=== PATIENT | male | born 1975 | race Caucasian/White ===

== ENCOUNTER 2020-01-09 22:48 | Inpatient (IN) | payer BC, OTHER ==
[~2020-01-09] VITALS: Ht 182.9 cm; Wt 82.0 kg
[~2020-01-09 22:48] MED LIST: CELE1CAP4 OR; PROZ20CA OR; TRAM50TA2 OR; TRAZ100T OR
[2020-01-09 23:46] LABS: HEMATOCRIT 46.3 % (42.0-52.0); HEMOGLOBIN 15.6 g/dl (13.5-17.5); MEAN CORPUSCULAR HGB CONC 33.7 g/dl (32.0-36.5); PLATELET COUNT, AUTOMATED 304 10^3/uL (150-450); RED BLOOD COUNT 5.03 10^6/uL (4.30-6.10); WHITE BLOOD COUNT 8.9 10^3/uL (4.0-10.0)
[2020-01-10 00:12] LABS: AMPHETAMINES LEVEL URINE NEGATIVE (NEGATIVE); BARBITURATES URINE NEGATIVE (NEGATIVE); BENZODIAZEPINES URINE NEGATIVE (NEGATIVE); CANNABINOIDS URINE NEGATIVE (NEGATIVE); COCAINE METABOLITE URINE NEGATIVE (NEGATIVE); METHADONE URINE NEGATIVE (NEGATIVE); OPIATES URINE NEGATIVE (NEGATIVE); PHENCYCLIDINE URINE NEGATIVE (NEGATIVE)
[2020-01-10 00:27] LABS: ACETAMINOPHEN LEVEL < 2.0 UG/ML (10.0-30.0); ALBUMIN 4.7 GM/DL (3.2-5.2); ALT/SGPT 29 U/L (12-78); BILIRUBIN,DIRECT 0.4 MG/DL (0.0-0.2); BILIRUBIN,TOTAL 1.9 MG/DL (0.2-1.0); BLOOD UREA NITROGEN 9 MG/DL (7-18); CALCIUM LEVEL 9.7 MG/DL (8.5-10.1); CARBON DIOXIDE LEVEL 25 MEQ/L (21-32); CHLORIDE LEVEL 109 MEQ/L (98-107); CREATININE FOR GFR 0.98 MG/DL (0.70-1.30); ETHYL ALCOHOL (ETHANOL) < 0.003 % (0.000-0.010); GLOMERULAR FILTRATION RATE > 60.0 (>60); GLUCOSE, FASTING 97 MG/DL (70-100); SALICYLATE LEVEL < 1.7 MG/DL (5.0-30.0); SODIUM LEVEL 140 MEQ/L (136-145); TOTAL PROTEIN 7.7 GM/DL (6.4-8.2)
[2020-01-10] MEDS ORDERED: MOM 30ML SUSPENSION UDC PO PRN (01:00)
[2020-01-10] MEDS ORDERED: MAALOX 30 ML SUSP *UDC PO PRN (01:00)
[2020-01-10] MEDS ORDERED: traZODone 50 MG TAB PO PRN (01:00)
[2020-01-10 02:47] VITALS: BP 142/90
[2020-01-10] MEDS: NICOTINE 21MG/24HR 1 EA TRANSDERMAL TD SCH (08:39)
--- NOTE | 2020-01-10 09:57 | MHHPEPDOC ---
General Date Of Admission: Jan 09, 2020 Legal Status: 9.39 Chief Complaint "I was having thoughts of suicide." History of Present Illness HISTORY OF THE PRESENT ILLNESS: Patient is a 44 -year-old , male, with a history of admission to [facility] in 2011 s/p OD while intoxicated who was brought to ED on a 9.41 after pt's niece called the police after pt told her he was having thoughts of killing himself with no plan. Pt endorsed depressed mood, anxiety, hopelessness, helplessness, poor concentration, anhedonia, and insomnia in the ED due to current psychosocial stressors of a current divorce, his son in fpc, relationship problems with his ex-fiance, and fear of being laid off from his job and then homelessness due to inability to pay for his home. Psychiatric Review of Systems Depression (2 or more weeks): depressed mood, difficulty concentrating, suicidal thoughts Magalis (4 or more days of): denies Psychosis: denies PTSD: denies Anxiety: situational anxiety, stressor related anxiety Past Psychiatric History Previous Psychiatric Diagnosis: depression, anxiety Previous Psychiatric Admissions: [facility] 2011 s/p OD while intoxication Suicide Attempts: 2012 s/p OD while intoxication Psychiatric Follow-up: denies Psychiatric medications: denies Past Medical History Medical Problems healthy adult Head Injury: No Seizures: No Hospitalizations: No Surgeries: No Family Medical/Psychiatric HX Medical Problems noncontributory Psychiatric Disorders: No Addiction: No Suicide Attemps/Completions: No Addiction History nicotine, alcohol (3 beers yesterday, drinks once a month on average, heavy alcohol use in the past), other (utox neg) Social History Childhood: born and raised in [facility], 2 parent home, 1 or 10 siblings, average childhood. No long speaks with his family members states "We only fight when we do talk." Abuse/Trauma:denies. Current Living Situation: lives alone in [place] Education: 10th grade Employment: Tech in [employer] Social Support: friends at work, niece Legal: denies Marital: legally in process of getting a divorce from his second , have adult children (1 son currently in fpc) Mental Status Examination General Appearance: well groomed, appears stated age, hospital scubs/clothing Build: average Demeanor: average Eye Contact: average Activity: average, anxious Behavior: cooperative Speech: clear, normal volume, reg/rate,rhythm,volume Mood: euthymic, anxious Mood "ok" Affect: full, appropriate, anxious Thought Process: logical/linear, intact Thought Content (Delusions): none reported, denies SI, HI, AVH Thought Content (Other): none reported Thought Content (Aggressive): none reported Perception (Hallucinations): none reported Perception (Other): none reported Cognition (Impairment of): none reported Cognition(Intelligence Est.): average Oriented: Awake, Alert, Oriented times three Insight: fair Judgment: Fair Psychosis: Denies Diagnoses Adjustment d/o with anxiety and depression alcohol use d/o A-FIB/CHADSVASC A-FIB History Current/History of A-Fib/PAF?: No Assessment Pt seen and states he was having thoughts of harming himself as he's currently going thru a divorce, is unsure what's going on with his ex-fiance, and is worried about being laid off due to to the COV19. States he drank 3 beers yesterday to help him relax but it didn't. States he feels he would benefit from starting antidepressant medication and recommended starting zoloft to aid his mood and thoughts and is agreeable, risks/benefits discussed. Encouraged to go to groups as part of his treatment and states he's been to one already. Currently denies SI/HI, hallucinations, delusions. Feels safe here. Initial Treatment Plan 1. Patient was admitted on a 9.39 status. 2. Complete history was obtained. 3. With patients permission, family will be contacted and database will be expanded. 4. Patients medication regimen will be reviewed and changed accordingly. 5. Patient will be provided with protected environment. 6. Patient will be treated with individual, group, and milieu therapies. 7. Patient will receive supportive psych-education. 8. Discharge planning will commence immediately. 9. Outpatient follow-up treatment will be strongly recommended. 10. The initial treatment plan will focus initially on: * Depression. * Risk for suicide. 11. zoloft 25mg daily ESTIMATED LENGTH OF STAY: 3-5 DAYS. TIME SPENT COUNSELING AND COORDINATING INITIAL CARE: 60 minutes. Vital Signs Vital Signs Date Time Temp Pulse Resp B/P (MAP) Pulse Ox O2 Delivery O2 Flow Rate FiO2 01/10/20 02:47 97.4 74 14 142/90 (107) 98 Room Air Laboratory Data 24H Labs Laboratory Tests 2 01/09/20 23:15: Nucleated Red Blood Cells % (auto) 0.0, Anion Gap 6L, Glomerular Filtration Rate > 60.0, Calcium Level 9.7, Total Bilirubin 1.9H, Direct Bilirubin 0.4H, Aspartate Amino Transf (AST/SGOT) 16, Alanine Aminotransferase (ALT/SGPT) 29, Alkaline Phosphatase 53, Total Protein 7.7, Albumin 4.7, Albumin/Globulin Ratio 1.57, Thyroid Stimulating Hormone (TSH) 1.470, Salicylates Level < 1.7L, Urine Opiates Screen NEGATIVE, Urine Methadone Screen NEGATIVE, Acetaminophen Level < 2.0L, Urine Barbiturates Screen NEGATIVE, Urine Phencyclidine Screen NEGATIVE, Urine Amphetamines Screen NEGATIVE, Urine Benzodiazepines Screen NEGATIVE, Urine Cocaine Metabolite Screen NEGATIVE, Urine Cannabinoids Screen NEGATIVE, Ethyl Alcohol Level < 0.003 CBC/BMP Laboratory Tests 01/09/20 23:15 Medications No Active Prescriptions or Reported Meds Allergies Coded Allergies: No Known Allergies (Verified , 06/19/12) CAROLE WAN DO Jan 10, 2020 9:57 am
[2020-01-10] MEDS ORDERED: SERTRALINE HCL 25 MG TABLET PO ONE (10:00)
--- NOTE | 2020-01-10 11:14 | HPEPDOC ---
General Date of Admission Jan 10, 2020 at 00:49 Date of Service: Jan 10, 2020 Chief Complaint The patient is a 44-year-old male admitted with a reason for visit of Unspecified Depression. Source: Patient Exam Limitations: No limitations Associated Symptoms: Denies Symptoms History of Present Illness Patient is a 44-year-old male who was admitted to the behavioral health unit due to depression with suicidal thoughts. Patient reported that has had a rough 6 months and yesterday his frustration got out of control; he reported to [facility] ED with suicidal ideation. Patient denied a history of depression or suicidal thoughts, however, he has been homeless and living in his truck for some time now. Patient currently denies SI/HI. He denies any new or worsening medical issues. Home Medications No Active Prescriptions or Reported Meds Allergies Coded Allergies: No Known Allergies (Verified , 06/19/12) Past Medical History Medical History Unremarkable Surgical History None Family History Significant Family History: Cancer (mother ()liver cancer; father ()lung cancer), Diabetes (mother and father) Social History * Smoker: current smoker, cigarettes (2 packs per day for 20 years) Alcohol: occationally (admits to previous alcoholism) Drugs: marijuana (occasionally) A-FIB/CHADSVASC A-FIB History Current/History of A-Fib/PAF?: No Current PO Anticoag Therapy: No Review of Systems Constitutional: Denies: Chills, Fever, Night Sweats Eyes: Denies: Pain ENT: Reports: Ear Pain; Denies: Head Aches Skin: Denies: Rash Pulmonary: Denies: Dyspnea, Cough Cardiovascular: Denies: Chest Pain, Palpitations, Orthopnea, Paroxysmal Noc. Dyspnea, Edema, Lt Headedness Gastrointestinal: Denies: Nausea, Vomiting, Abdominal Pain, Diarrhea, Constipation Genitourinary: Denies: Dysuria, Retention Hematologic: Denies: Bruising Musculoskeletal: Denies: Neck Pain, Back Pain, Joint Pain, Muscle Pain, Spasms Neurological: Denies: Weakness, Numbness Psych: Reports: Depression, Thoughts of Self Harm; Denies: Mood Normal, Memory Issues, Thoughts of Harming Other Physical Examination General Exam: Positive: Alert, No Acute Distress Eye Exam: Positive: PERRLA, Conjunctiva & lids normal, EOMI; Negative: Sclera icteric ENT Exam: Positive: Atraumatic, Mucous membr. moist/pink, Pharynx Normal Neck Exam: Positive: Supple; Negative: thyromegaly Chest Exam: Positive: Clear to auscultation, Normal air movement Heart Exam: Positive: Rate Normal, Regular Rhythm, Normal S1, Normal S2; Negative: Murmurs, Rubs Telemetry: Positive: No significant arrhythmia Abdomen Exam: Positive: Normal bowel sounds, Soft; Negative: Tenderness Extremity Exam: Positive: Normal pulses; Negative: Clubbing, Cyanosis, Edema Skin Exam: Positive: Nl turgor and temperature Neuro Exam: Positive: Normal Gait, Normal Speech, Cranial Nerves 3-12 NL Psych Exam: Positive: Mood NL Vital Signs Vital Signs Date Time Temp Pulse Resp B/P (MAP) Pulse Ox O2 Delivery O2 Flow Rate FiO2 01/10/20 02:47 97.4 74 14 142/90 (107) 98 Room Air Laboratory Data Labs 24H Laboratory Tests 2 01/09/20 23:15: Nucleated Red Blood Cells % (auto) 0.0, Anion Gap 6L, Glomerular Filtration Rate > 60.0, Calcium Level 9.7, Total Bilirubin 1.9H, Direct Bilirubin 0.4H, Aspartate Amino Transf (AST/SGOT) 16, Alanine Aminotransferase (ALT/SGPT) 29, Alkaline Phosphatase 53, Total Protein 7.7, Albumin 4.7, Albumin/Globulin Ratio 1.57, Thyroid Stimulating Hormone (TSH) 1.470, Salicylates Level < 1.7L, Urine Opiates Screen NEGATIVE, Urine Methadone Screen NEGATIVE, Acetaminophen Level < 2.0L, Urine Barbiturates Screen NEGATIVE, Urine Phencyclidine Screen NEGATIVE, Urine Amphetamines Screen NEGATIVE, Urine Benzodiazepines Screen NEGATIVE, Urine Cocaine Metabolite Screen NEGATIVE, Urine Cannabinoids Screen NEGATIVE, Ethyl Alcohol Level < 0.003 CBC/BMP Laboratory Tests 01/09/20 23:15 Assessment/Plan Patient is a 44-year-old male who was admitted to the behavioral health unit due to depression with suicidal thoughts. Patient reported that has had a rough 6 months and yesterday his frustration got out of control so he reported to [facility] ED with suicidal ideation. Patient denied a history of depression or suicidal thoughts, however, he has been homeless and living in his truck for some time now. Patient currently denies SI/HI. He denies any new or worsening medical issues. Depression with suicidal thoughts. Management per psychiatry Medicine will sign off at this time. Please feel free to re-consult as needed. Plan / VTE VTE Prophylaxis Ordered?: No CINDY BEACH PA-C Jan 10, 2020 11:14
[2020-01-10] MEDS: ACETAMINOPHEN TAB 650MG DOSE (2X325MG) PO PRN (14:52)
[2020-01-10 16:27] VITALS: BP 134/71
[2020-01-11 06:17] VITALS: BP 133/77
[2020-01-11] MEDS: NICOTINE 21MG/24HR 1 EA TRANSDERMAL TD SCH (08:40)
[2020-01-11] MEDS ORDERED: SERTRALINE HCL 25 MG TABLET PO SCH (09:00)
[2020-01-11] MEDS: ACETAMINOPHEN TAB 650MG DOSE (2X325MG) PO PRN (11:46)
--- NOTE | 2020-01-11 13:01 | MHDSPDOC ---
[facility] Discharge Summary Discharge Summary DATE OF ADMISSION: Jan 10, 2020 at 00:49 DATE OF DISCHARGE: 01/11/20 Nathanael Mishra Discharge Nathanael Mishra Select Gender MRN: N/A Date of : MM/DD/YYYY Date of Service: 01/11/2020 Diagnoses Adjustment disorder with disruption of mood and conduct. Alcohol use disorder, moderate. History of Present Illness 44-year-old man with no major psychiatric history presents with passive ideation after getting into a conflict with where he was kicked out of home. Consultants Involved Hospitalist/PCP screening Treatment and Progress On The Unit The patient was admitted to the inpatient unit and subsequently started on Zoloft 25 mg with positive effects. He was placed on CIWA protocol with no signs of major alcohol withdrawal. He was observed and after 48 hours, he did not meet criteria for further involuntary treatment. He attended groups when available and was friendly and amenable and in behavioral control the entire time. Discharge Assessment 44-year-old man with a lack of psychiatric history presents in a state of adjustment. He is treated primarily with low-dose antidepressants and supportive treatment that returned him to a future orientated state. The patient at the time of discharge did not meet criteria for involuntary admission/extension due to having a normal mental status exam, fair insight into the situation, They are engaged in the discharge process, as well as being friendly and amenable in behavioral control and havent been engaging in any observed concerning behavior or ideation recently. They decline voluntary extension/admission at this time and must be discharged in good yudith, as Im unable to make a case for holding the patient against their will. They may have historical risk factors of admissions and other interactions with psychiatry however, those are not modifiable from a clinical perspective. The patient will need to be discharged in good yudith. Mental Status Examination General: Well dressed with good hygiene Speech: Spontaneous and fluid Thought processes: Linear and logical MSK: Smooth and coordinated gait, no signs of tremors or involuntary orofacial movements Thought content: Future orientated Abstract reasoning, and computation: Intact Description of associations: Intact Description of abnormal or psychotic thoughts: Denies any suicidal or homicidal ideation. Denies any auditory or visual hallucinations. Does not appear to be responding to internal stimuli. Does not appear to be endorsing any bizarre or paranoid ideation. Judgment: fair Insight: fair Orientation: Alert and orientated 3 Cognition: Grossly normal Recent and remote memory: Intact Attention span and concentration: Intact Fund of knowledge: Adequate Mood: "okay" Affect: Euthymic with a full range Follow Up The social work team worked during the predischarge meeting in order to evaluate for further issues of lethality address them fully before discharge. They worked on safety planning with the patient's family members in order to ensure that the patient will have a safe and effective discharge. Time Spent The amount of time spent in the coordination of care for this patient was approximately 45 minutes. Vital Signs/I&Os Vital Signs Date Time Temp Pulse Resp B/P (MAP) Pulse Ox O2 Delivery O2 Flow Rate FiO2 01/11/20 12:49 99.1 01/11/20 06:17 63 18 133/77 (95) 01/10/20 02:47 98 Room Air Medications Scheduled Nicotine (Nicotine Patch) 21 Mg Patch.td24, 1 PATCH TD DAILY for tobacco for 30 Days, #30 Sertraline HCl (Sertraline HCl) 25 Mg Tablet, 25 MG PO DAILY for mood for 7 Days, #7 Allergies Coded Allergies: No Known Allergies (Verified , 06/19/12) ASHU ADAM DO Jan 11, 2020 13:01
[2020-01-11] MEDS ORDERED: SERT25TA21 PO (13:51)
[2020-01-11] MEDS ORDERED: NICO21PAT TD (13:51)
== END 2020-01-11 15:30 | disposition home or self-care (01) | DRG 755 ==
LOC: M ED 22:48 → M ED INP 01-10 00:49 → M PSY 01-10 01:36
PROVIDERS: ADMIT Psychiatry & Neurology Psychiatry; ATTEND Psychiatry & Neurology Psychiatry
DX: F43.25 Adjustment disorder with mixed disturbance of emotions and conduct (principal); F32.9 Major depressive disorder, single episode, unspecified; Z63.5 Disruption of family by separation and divorce; F41.9 Anxiety disorder, unspecified; F17.200 Nicotine dependence, unspecified, uncomplicated; F10.10 Alcohol abuse, uncomplicated; Z63.8 Other specified problems related to primary support group; Z56.2 Threat of job loss; F43.23 Adjustment disorder with mixed anxiety and depressed mood

== ENCOUNTER 2020-01-24 21:59 | Emergency (ER) | payer OTHER ==
[~2020-01-24] VITALS: Ht 182.9 cm; Wt 81.8 kg
[~2020-01-24 21:59] MED LIST changes: +NICO21PAT TD; +SERT25TA21 PO
[2020-01-24 22:59] LABS: HEMATOCRIT 48.9 % (42.0-52.0); HEMOGLOBIN 16.6 g/dl (13.5-17.5); MEAN CORPUSCULAR HEMOGLOBIN 31.5 pg (27.0-33.0); MEAN CORPUSCULAR HGB CONC 33.9 g/dl (32.0-36.5); MEAN CORPUSCULAR VOLUME 92.8 fl (80.0-96.0); PLATELET COUNT, AUTOMATED 315 10^3/uL (150-450); RED BLOOD COUNT 5.27 10^6/uL (4.30-6.10); WHITE BLOOD COUNT 13.9 10^3/uL (4.0-10.0)
[2020-01-24 23:16] LABS: AMPHETAMINES LEVEL URINE NEGATIVE (NEGATIVE); BARBITURATES URINE NEGATIVE (NEGATIVE); BENZODIAZEPINES URINE NEGATIVE (NEGATIVE); CANNABINOIDS URINE NEGATIVE (NEGATIVE); COCAINE METABOLITE URINE NEGATIVE (NEGATIVE); METHADONE URINE NEGATIVE (NEGATIVE); OPIATES URINE NEGATIVE (NEGATIVE); PHENCYCLIDINE URINE NEGATIVE (NEGATIVE)
[2020-01-24 23:40] LABS: ACETAMINOPHEN LEVEL < 2.0 UG/ML (10.0-30.0); ALBUMIN 4.2 GM/DL (3.2-5.2); ALT/SGPT 35 U/L (12-78); BILIRUBIN,DIRECT 0.1 MG/DL (0.0-0.2); BILIRUBIN,TOTAL 0.6 MG/DL (0.2-1.0); BLOOD UREA NITROGEN 13 MG/DL (7-18); CALCIUM LEVEL 9.5 MG/DL (8.5-10.1); CARBON DIOXIDE LEVEL 23 MEQ/L (21-32); CHLORIDE LEVEL 111 MEQ/L (98-107); CREATININE FOR GFR 0.91 MG/DL (0.70-1.30); ETHYL ALCOHOL (ETHANOL) 0.004 % (0.000-0.010); GLOMERULAR FILTRATION RATE > 60.0 (>60); GLUCOSE, FASTING 110 MG/DL (70-100); POTASSIUM SERUM 3.8 MEQ/L (3.5-5.1); SALICYLATE LEVEL 4.5 MG/DL (5.0-30.0); SODIUM LEVEL 139 MEQ/L (136-145); TOTAL PROTEIN 7.6 GM/DL (6.4-8.2)
[2020-01-25 01:41] VITALS: BP 134/89
== END 2020-01-25 01:45 | disposition home or self-care (01) ==
LOC: M ED 21:59
DX: Z60.9 Problem related to social environment, unspecified (principal); F33.9 Major depressive disorder, recurrent, unspecified; F10.10 Alcohol abuse, uncomplicated; F17.210 Nicotine dependence, cigarettes, uncomplicated; Z79.899 Other long term (current) drug therapy
CPT/HCPCS: 36415; 80048; 80076; 80307; 84443; 85027; 99284; G0480

== ENCOUNTER 2020-07-17 08:30 | Emergency (ER) | payer OTHER ==
[~2020-07-17] VITALS: Ht 182.9 cm; Wt 79.1 kg
--- NOTE | 2020-07-17 09:18 | REPVR ---
PROCEDURE INFORMATION: Exam: XR Right Shoulder Exam date and time: 07/17/2020 8:57 AM Age: 45 years old Clinical indication: Pain; Shoulder; Right; Additional info: Right chest and shoulder pain TECHNIQUE: Imaging protocol: XR Right shoulder. Views: AP internal and external rotation views, and a scapular Y view of the right shoulder. COMPARISON: No relevant prior studies available. FINDINGS: Bones/joints: Normal. Soft tissues: Normal. IMPRESSION: No acute bony abnormality identified. Electronically signed by: Ralf Zacarias On 07/17/2020 09:18:14 AM
--- NOTE | 2020-07-17 09:18 | REPVR ---
PROCEDURE INFORMATION: Exam: XR Chest, 2 Views Exam date and time: 07/17/2020 8:57 AM Age: 45 years old Clinical indication: Pain; Other: Shoulder; Additional info: Right chest and shoulder pain TECHNIQUE: Imaging protocol: XR of the chest Views: Frontal and lateral upright views. COMPARISON: No relevant prior studies available. FINDINGS: Lungs: The lungs are clear bilaterally. The pulmonary vasculature is normal. Pleural space: No pleural effusion. No pneumothorax. Heart/Mediastinum: The heart is normal in size and contour. Bones/joints: Right lower lateral thoracic spine vertebral body marginal osteophytes. Slight rightward lower thoracic spinal curvature. IMPRESSION: No acute cardiopulmonary abnormality identified. Electronically signed by: Ralf Zacarias On 07/17/2020 09:17:42 AM
[2020-07-17] MEDS ORDERED: IBUPROFEN 600MG TAB PO ONE (09:30)
[2020-07-17] MEDS ORDERED: ACETAMINOPHEN 500 MG TAB PO ONE (09:30)
[2020-07-17] MEDS ORDERED: IBUP-1022 PO (09:34)
[2020-07-17 10:15] VITALS: BP 138/84
== END 2020-07-17 10:25 | disposition home or self-care (01) ==
LOC: M ED 08:30
DX: M75.51 Bursitis of right shoulder (principal); I10 Essential (primary) hypertension; F41.9 Anxiety disorder, unspecified; F33.9 Major depressive disorder, recurrent, unspecified; F17.200 Nicotine dependence, unspecified, uncomplicated

== ENCOUNTER → 2024-07-17 | Outpatient (REF) | payer OTHER, MEDICAID ==
[~2024-07-17] MED LIST changes: +IBUP-1022 PO
[2024-07-17 18:16] LABS: ALBUMIN 4.4 G/DL (3.2-5.2); ALKALINE PHOSPHATASE 72 U/L (46-116); ALT/SGPT 42 U/L (7.0-40); AST/SGOT 24 U/L (<34); BILIRUBIN,TOTAL 0.9 MG/DL (0.3-1.2); BLOOD UREA NITROGEN 11 MG/DL (9-23); CALCIUM LEVEL 9.6 MG/DL (8.5-10.1); CARBON DIOXIDE LEVEL 28 MMOL/L (20-31); CHLORIDE LEVEL 109 MMOL/L (98-107); CHOLESTEROL LEVEL 144 MG/DL (<200); CHOLESTEROL RISK RATIO 2.84 (<5); GLOMERULAR FILTRATION RATE > 60.0 (>60); GLUCOSE, FASTING 83 MG/DL (60-100); HDL CHOLESTEROL 50.7 MG/DL (>40); LDL CHOLESTEROL 54.7 MG/DL (<100); NON-HDL-C 93.3 MG/DL; POTASSIUM SERUM 4.1 MMOL/L (3.5-5.1); SODIUM LEVEL 139 MMOL/L (136-145); TOTAL PROTEIN 7.2 G/DL (5.7-8.2); TRIGLYCERIDES LEVEL 193 MG/DL (<150)
[2024-07-17 18:18] LABS: THYROID STIMULATING HORMONE 0.649 uIU/ML (0.55-4.78)
[2024-07-17 18:54] LABS: HEMOGLOBIN A1c 5.1 % (4.0-6.0)
== END ==
LOC: M LAB REF 16:19
PROVIDERS: ATTEND Physician Assistant
DX: Z11.9 Encounter for screening for infectious and parasitic diseases, unspecified (principal); E55.9 Vitamin D deficiency, unspecified; E66.9 Obesity, unspecified

== ENCOUNTER → 2024-07-18 | Outpatient (CLI) | payer MEDICAID, OTHER, SELFPAY | LOC: M RAD 16:05 | PROVIDERS: ATTEND Physician Assistant | DX: M25.561 Pain in right knee (principal); R05.3 Chronic cough ==

== ENCOUNTER 2024-10-04 16:34 | Emergency (ER) | payer SELFPAY ==
[~2024-10-04] VITALS: Ht 182.9 cm; Wt 79.5 kg
[2024-10-04 17:36] LABS: HEMATOCRIT 48.3 % (42.0-52.0); HEMOGLOBIN 16.2 g/dl (13.5-17.5); MEAN CORPUSCULAR HEMOGLOBIN 31.3 pg (27.0-33.0); MEAN CORPUSCULAR HGB CONC 33.5 g/dl (32.0-36.5); MEAN CORPUSCULAR VOLUME 93.4 fl (80.0-96.0); PLATELET COUNT, AUTOMATED 278 10^3/uL (150-450); RED BLOOD COUNT 5.17 10^6/uL (4.30-6.10); WHITE BLOOD COUNT 10.6 10^3/uL (4.0-10.0)
[2024-10-04 17:49] LABS: AMPHETAMINES LEVEL URINE NEGATIVE (NEGATIVE); BARBITURATES URINE NEGATIVE (NEGATIVE); BENZODIAZEPINES URINE NEGATIVE (NEGATIVE); COCAINE METABOLITE URINE NEGATIVE (NEGATIVE); METHADONE URINE NEGATIVE (NEGATIVE); OPIATES URINE NEGATIVE (NEGATIVE); PHENCYCLIDINE URINE NEGATIVE (NEGATIVE)
[2024-10-04 17:50] LABS: ETHYL ALCOHOL (ETHANOL) < 0.003 % (0.000-0.010)
[2024-10-04 17:52] LABS: ALBUMIN 4.7 G/DL (3.2-5.2); ALKALINE PHOSPHATASE 60 U/L (40-129); ALT/SGPT 22 U/L (7.0-40); AST/SGOT 13 U/L (<34); BILIRUBIN,DIRECT 0.5 MG/DL (<0.4); BILIRUBIN,TOTAL 1.5 MG/DL (0.3-1.2); BLOOD UREA NITROGEN 13 MG/DL (9-23); CALCIUM LEVEL 10.1 MG/DL (8.5-10.1); CARBON DIOXIDE LEVEL 30 MMOL/L (20-31); CHLORIDE LEVEL 107 MMOL/L (98-107); CREATININE FOR GFR 0.91 MG/DL (0.70-1.30); GLOMERULAR FILTRATION RATE > 60.0 (>60); GLUCOSE, FASTING 104 MG/DL (60-100); POTASSIUM SERUM 3.7 MMOL/L (3.5-5.1); SALICYLATE LEVEL < 3.0 MG/DL (<30); SODIUM LEVEL 140 MMOL/L (136-145); TOTAL PROTEIN 7.8 G/DL (5.7-8.2)
[2024-10-04 18:01] LABS: CANNABINOIDS URINE POSITIVE (NEGATIVE)
[2024-10-04 18:41] VITALS: BP 141/82; TEMP 97.4; O2SAT 100
== END 2024-10-04 18:45 | disposition home or self-care (01) ==
LOC: M ED 16:34
DX: F43.0 Acute stress reaction (principal); J45.909 Unspecified asthma, uncomplicated; I10 Essential (primary) hypertension; F32.A Depression, unspecified; F17.200 Nicotine dependence, unspecified, uncomplicated; F12.10 Cannabis abuse, uncomplicated; Z79.1 Long term (current) use of non-steroidal anti-inflammatories (NSAID)

== ENCOUNTER 2025-01-26 11:22 | Emergency (ER) | payer MEDICAID, SELFPAY ==
[~2025-01-26] VITALS: Ht 182.9 cm; Wt 70.2 kg
[2025-01-26 11:25] VITALS: BP 146/77; TEMP 99.2; O2SAT 100
[2025-01-26] MEDS ORDERED: ACET-683 PO (11:31)
[2025-01-26] MEDS: KETOROLAC 60MG 2ML VIAL IM ONE (13:09)
[2025-01-26] MEDS: ACETAMINOPHEN 500 MG TAB PO ONE (13:09)
[2025-01-26] MEDS: methocarbamoL 750 MG TAB PO ONE (13:09)
[2025-01-26] MEDS: LIDOCAINE 5% (LIDODERM) PATCH TD ONE (14:15)
[2025-01-26] MEDS ORDERED: METH-1164 PO (14:41)
[2025-01-26] MEDS ORDERED: LIDO5DIS41 TOP (14:41)
== END 2025-01-26 14:47 | disposition home or self-care (01) ==
LOC: M ED 11:22
DX: M25.511 Pain in right shoulder (principal); J45.909 Unspecified asthma, uncomplicated; J44.9 Chronic obstructive pulmonary disease, unspecified; I10 Essential (primary) hypertension; F41.9 Anxiety disorder, unspecified; F32.A Depression, unspecified; F10.10 Alcohol abuse, uncomplicated; Z79.899 Other long term (current) drug therapy; Z79.1 Long term (current) use of non-steroidal anti-inflammatories (NSAID)
CPT/HCPCS: 73030; 96372; 99283; J1885

== ENCOUNTER 2025-02-08 16:11 | Emergency (ER) | payer MEDICAID ==
[~2025-02-08] VITALS: Ht 182.9 cm; Wt 64.8 kg
[~2025-02-08 16:11] MED LIST changes: +ACET-683 PO; +LIDO5DIS41 TOP; +METH-1164 PO
[2025-02-08] MEDS ORDERED: ALBU8.5H (16:35)
[2025-02-08 17:20] LABS: HEMATOCRIT 42.3 % (42.0-52.0); HEMOGLOBIN 14.4 g/dl (13.5-17.5); MEAN CORPUSCULAR HEMOGLOBIN 32.4 pg (27.0-33.0); MEAN CORPUSCULAR VOLUME 95.1 fl (80.0-96.0); PLATELET COUNT, AUTOMATED 244 10^3/uL (150-450); RED BLOOD COUNT 4.45 10^6/uL (4.30-6.10); WHITE BLOOD COUNT 7.4 10^3/uL (4.0-10.0)
[2025-02-08 17:45] LABS: AMPHETAMINES LEVEL URINE NEGATIVE (NEGATIVE); BARBITURATES URINE NEGATIVE (NEGATIVE); BENZODIAZEPINES URINE NEGATIVE (NEGATIVE); COCAINE METABOLITE URINE NEGATIVE (NEGATIVE); METHADONE URINE NEGATIVE (NEGATIVE); OPIATES URINE NEGATIVE (NEGATIVE); PHENCYCLIDINE URINE NEGATIVE (NEGATIVE)
[2025-02-08 17:47] LABS: ETHYL ALCOHOL (ETHANOL) 0.005 % (0.000-0.010)
[2025-02-08 17:49] LABS: ALBUMIN 4.2 G/DL (3.2-5.2); ALKALINE PHOSPHATASE 42 U/L (40-129); ALT/SGPT 22 U/L (7.0-40); AST/SGOT 12 U/L (<34); BILIRUBIN,DIRECT 0.4 MG/DL (<0.4); BILIRUBIN,TOTAL 1.2 MG/DL (0.3-1.2); BLOOD UREA NITROGEN 13 MG/DL (9-23); CALCIUM LEVEL 9.5 MG/DL (8.5-10.1); CARBON DIOXIDE LEVEL 28 MMOL/L (20-31); CHLORIDE LEVEL 107 MMOL/L (98-107); CREATININE FOR GFR 0.86 MG/DL (0.70-1.30); GLOMERULAR FILTRATION RATE > 90.0 (>60); GLUCOSE, FASTING 94 MG/DL (60-100); POTASSIUM SERUM 3.8 MMOL/L (3.5-5.1); SALICYLATE LEVEL < 3.0 MG/DL (<30); SODIUM LEVEL 140 MMOL/L (136-145); TOTAL PROTEIN 6.9 G/DL (5.7-8.2)
[2025-02-08 17:50] LABS: CANNABINOIDS URINE POSITIVE (NEGATIVE)
[2025-02-08 17:51] LABS: THYROID STIMULATING HORMONE 0.984 uIU/ML (0.55-4.78)
[2025-02-08 20:50] VITALS: BP 123/85; TEMP 98.1; O2SAT 99
== END 2025-02-08 21:15 | disposition home or self-care (01) ==
LOC: M ED 16:11
DX: F43.0 Acute stress reaction (principal); I10 Essential (primary) hypertension; Z79.51 Long term (current) use of inhaled steroids; Z79.631 Long term (current) use of antimetabolite agent

== ENCOUNTER → 2025-02-12 | Outpatient (CLI) | payer MEDICAID ==
[~2025-02-12] MED LIST changes: +ALBU8.5H
[2025-02-12 18:14] LABS: BASO # 0.1 10^3/uL (0.0-0.2); BASO % 0.5 % (0.0-1.0); EOS # 0.4 10^3/uL (0.0-0.5); HEMATOCRIT 44.5 % (42.0-52.0); HEMOGLOBIN 15.2 g/dl (13.5-17.5); LYMPH # 3.3 10^3/uL (1.5-5.0); LYMPH % 28.8 % (24.0-44.0); MEAN CORPUSCULAR HGB CONC 34.2 g/dl (32.0-36.5); MEAN CORPUSCULAR VOLUME 93.7 fl (80.0-96.0); MONO # 0.5 10^3/uL (0.0-0.8); MONO % 4.6 % (2.0-8.0); NEUTROPHILS # 7.3 10^3/uL (1.5-8.5); NEUTROPHILS % 62.8 % (36.0-66.0); PLATELET COUNT, AUTOMATED 278 10^3/uL (150-450); RED BLOOD COUNT 4.75 10^6/uL (4.30-6.10); WHITE BLOOD COUNT 11.6 10^3/uL (4.0-10.0)
[2025-02-12 18:24] LABS: HEMOGLOBIN A1c 4.8 % (4.0-6.0)
[2025-02-12 18:26] LABS: LIPASE 29 U/L (12-53)
[2025-02-12 18:27] LABS: TOTAL IRON BINDING CAPACITY 296 UG/DL (250-425)
[2025-02-12 18:28] LABS: ALBUMIN 4.4 G/DL (3.2-5.2); ALKALINE PHOSPHATASE 45 U/L (40-129); ALT/SGPT 24 U/L (7.0-40); AST/SGOT 17 U/L (<34); BILIRUBIN,TOTAL 1.2 MG/DL (0.3-1.2); BLOOD UREA NITROGEN 14 MG/DL (9-23); CALCIUM LEVEL 9.5 MG/DL (8.5-10.1); CARBON DIOXIDE LEVEL 30 MMOL/L (20-31); CHLORIDE LEVEL 107 MMOL/L (98-107); CREATININE FOR GFR 0.87 MG/DL (0.70-1.30); GLOMERULAR FILTRATION RATE > 90.0 (>60); GLUCOSE, FASTING 88 MG/DL (60-100); IRON (FE) 64 UG/DL (65-175); PERCENT SATURATION 21.6 % (19.7-50.0); SODIUM LEVEL 141 MMOL/L (136-145)
[2025-02-12 18:29] LABS: T UPTAKE 31.5 % (22.5-37.0); THYROID STIMULATING HORMONE 0.404 uIU/ML (0.55-4.78)
[2025-02-12 18:30] LABS: FERRITIN 110.7 NG/ML (10.5-307.3); FREE THYROXINE INDEX 2.9 % (1.4-3.8); THYROXINE (T4) 9.3 UG/DL (4.5-10.9)
== END ==
LOC: M RAD 16:40
PROVIDERS: ATTEND Physician Assistant
DX: R10.9 Unspecified abdominal pain (principal); D50.9 Iron deficiency anemia, unspecified